=== PATIENT | male | born 1990 | race Caucasian/White ===

== ENCOUNTER 2024-07-09 17:05 | Emergency (ER) | payer OTHER, SELFPAY ==
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
[2024-07-09 18:05] VITALS: BP 138/77; PULSE 94; RESP 15; TEMP 36.6; O2SAT 98
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
[2024-07-09] MEDS: ACETAMINOPHEN 500 MG TABLET 1000 MG PO (19:15)
== END 2024-07-09 19:50 | disposition home or self-care (01) ==
PROVIDERS: Emergency Provider Physician Assistant; PCP Physician Assistant
DX: S09.90XA Unspecified injury of head, initial encounter (principal); S19.9XXA Unspecified injury of neck, initial encounter; E66.01 Morbid (severe) obesity due to excess calories; Z68.42 Body mass index [BMI] 45.0-49.9, adult; V49.40XA Driver injured in collision with unspecified motor vehicles in traffic accident, initial encounter
CPT/HCPCS: 70450; 72125; 99284; A9270

== ENCOUNTER 2025-04-02 18:07 | Emergency (ER) | payer OTHER, SELFPAY ==
--- NOTE | ~2025-04-02 | XR_ITS ---
HISTORY: [place] a pop in bicep lifting a heavy object COMPARISON: None TECHNIQUE: 3 views of the left elbow were performed FINDINGS: No acute fracture is identified. No elevation of the anterior or posterior fat pads are identified to suggest a supracondylar fracture . Overlying soft tissues are unremarkable. Bone mineralization is age-appropriate. IMPRESSION: No acute fracture or dislocation Reviewed, dictated and finalized at location A.
--- NOTE | ~2025-04-02 | XR_ITS ---
HISTORY: Pop in bicep while lifting heavy object COMPARISON: None TECHNIQUE: 3 views of the left shoulder were performed. FINDINGS: No acute fracture. The glenohumeral joint space is maintained. Widening of the acromioclavicular joint space, possibly secondary to prior acromioclavicular joint in jury. The visualized portion of the adjacent left lung is clear. The humeral head is well seated within the glenoid fossa. Within the visualized portion of the soft tissues of the upper arm is a bilobed density suggesting di stal biceps tendon rupture. IMPRESSION: No acute fracture or anterior dislocation. Reviewed, dictated and finalized at location A.
[2025-04-02 18:30] VITALS: BP 128/74; PULSE 90; RESP 20; TEMP 36.9; O2SAT 95
[2025-04-02 19:20] VITALS: BP 130/72; PULSE 88; RESP 18; TEMP 36.9; O2SAT 99
--- NOTE | 2025-04-02 19:33 | ED.GENADULT ---
HPI - General Adult General Chief complaint: Extremity Injury, Upper Stated complaint: left arm injury Time Seen by Provider: 04/02/25 19:22 History of Present Illness HPI narrative: 34-year-old male presenting with left arm pain. Patient was trying to lift a heavy machine object when he felt a pop in his upper arm. He is no longer able to flex his arm. He also has significant pain and movement. No weakness or numbness to the hand. [employer] strength is intact. No other injuries. Related Data Allergies Allergy/AdvReac Type Severity Reaction Status Date / Time Penicillins Allergy Mild Rash Verified 07/09/24 18:11 Exam Narrative: APPEARANCE: No apparent distress. Head: atraumatic. EYES: EOMI, NOSE: Atraumatic NECK: Trachea midline RESPIRATORY: No increased rate of breathing CARDIOVASCULAR: RRR, ABDOMINAL: Non-distended MUSCULOSKELETAl: [employer] Consultant strength intact, radial and ulnar pulses intact. Wrist movement intact. Patient has decreased strength flexion at the elbow. tricep function intact. Full function of the shoulder without pain. All compartments are soft. No overlying skin changes. Full function of the shoulder without pain. NEURO: Alert. Moving 4/4 extremities SKIN:: Warm, dry. Normal color PSYCHIATRIC: Normal affect Course Vital Signs Vital signs: Vital Signs Temperature 98.4 F 04/02/25 18:30 Pulse Rate 90 04/02/25 18:30 Respiratory Rate 20 04/02/25 18:30 Blood Pressure 128/74 04/02/25 18:30 Pulse Oximetry 95 04/02/25 18:30 Oxygen Delivery Room Air 04/02/25 18:30 Temperature 98.4 F 04/02/25 19:20 Pulse Rate 88 04/02/25 19:20 Respiratory Rate 18 04/02/25 19:20 Blood Pressure 130/72 04/02/25 19:20 Pulse Oximetry 99 04/02/25 19:20 Oxygen Delivery Room Air 04/02/25 18:30 Medical Decision Making [facility] Narrative Medical decision making narrative: -Course: 34-year-old male presenting with left arm injury. Suspected distal bicep tendon injury/rupture. Patient will be placed in sling given Orthopedic follow-up. Given return precautions. -DDX includes but is not limited to: Complete rupture, partial rupture, tendinitis, muscle strain Vital Signs Vital Signs: Vital Signs Temperature 98.4 F 04/02/25 18:30 Pulse Rate 90 04/02/25 18:30 Respiratory Rate 20 04/02/25 18:30 Blood Pressure 128/74 04/02/25 18:30 Pulse Oximetry 95 04/02/25 18:30 Oxygen Delivery Room Air 04/02/25 18:30 Temperature 98.4 F 04/02/25 19:20 Pulse Rate 88 04/02/25 19:20 Respiratory Rate 18 04/02/25 19:20 Blood Pressure 130/72 04/02/25 19:20 Pulse Oximetry 99 04/02/25 19:20 Oxygen Delivery Room Air 04/02/25 18:30 Discharge Plan Discharge Clinical Impression: Arm pain Patient Disposition: Home Condition: Stable Instructions: Antibiotic Form, Tendon Rupture (ED) Additional Instructions: You were seen in the emergency department for a biceps injury. I am concerned that you ruptured your biceps tendon. Please follow-up with the orthopedic surgeon listed below. If you develop severe pain or any new or worsening symptoms return to ED for re-evaluation. Patient Language: Hebrew Prescriptions: New ibuprofen 800 mg tablet 800 mg PO TID PRN (Reason: pain) 7 Days Qty: 21 0RF acetaminophen 500 mg tablet 1,000 mg PO TID PRN (Reason: eliane) 7 Days Qty: 42 0RF methocarbamol 750 mg tablet 1,500 mg PO TID Qty: 42 0RF No Action cyclobenzaprine 10 mg tablet 10 mg PO HS PRN (Reason: muscle spasm) Qty: 10 0RF Follow-up/Referrals: Emil,DORIS Ricardo [Primary Care Provider] - Dinesh Hernandez MD [Physician] - 1 Week (Bicep injury )
[2025-04-02] MEDS: ACETAMINOPHEN 500 MG TABLET 1000 MG PO (20:17)
[2025-04-02] MEDS: KETOROLAC 30 MG/ML VIAL (*BKC) IM (20:18)
== END 2025-04-02 22:38 | disposition home or self-care (01) ==
PROVIDERS: Emergency Provider Emergency Medicine; PCP Physician Assistant
DX: M79.602 Pain in left arm (principal); X50.0XXA Overexertion from strenuous movement or load, initial encounter
CPT/HCPCS: 73030; 73080; 96372; 99284; A4565; A9270; J1885

== ENCOUNTER 2025-04-07 13:49 | Outpatient (CLI) | payer OTHER, SELFPAY ==
--- NOTE | 2025-04-07 14:32 | ECG_ITS ---
Test Date: 2025-04-07 14:42:18 Measurements Intervals [place] Rate: 78 P: 41 MI: 148 QRS: 32 QRSD: 103 T: 5 QT: 366 QTc: 418 Interpretive Statements SINUS RHYTHM BORDERLINE ST-T WAVE ABNORMALITY- INFERIOR LEADS BASELINE ARTIFACT- AVR, AVL, AVF, V1-V6 BORDERLINE ECG No previous ECG available for comparison Electronically Signed On 04-07-2025 16:30:14 CDT by Raad Carmona D.O.
[2025-04-07 15:06] LABS: Hematocrit 47.1 % (42.0-52.0); Hemoglobin 15.8 g/dL (14.0-18.0); Mean Corpuscular HGB Conc 33.5 g/dl (32-36); Mean Corpuscular Hemoglobin 29.6 pg (26-34); Mean Corpuscular Volume 88.2 fl (80-100); Mean Platelet Volume 10.4 fl (7.4-10.4); Platelet Count Result 230 k/mm3 (150-375); Red Blood Count 5.34 M/mm3 (4.6-6.20); Red Cell Distribution Width 14.3 % (11.5-14.5); White Blood Count 8.4 K/mm3 (4.5-10.0)
[2025-04-07 15:20] LABS: Prothrombin Time 13.5 Seconds (11.1-14.7)
[2025-04-07 15:21] LABS: Partial Thromboplastin Time 25.8 Seconds (22.3-36.8)
[2025-04-07 15:24] LABS: Alanine Aminotransferase 26 U/L (6-50); Albumin Level 4.2 g/dL (3.5-5.1); Alkaline Phosphatase 44 U/L (38-126); Anion Gap 11 mmol/L (4-12); Aspartate Amino Transferase 31 U/L (17-59); Bilirubin,Total 0.3 mg/dL (0.2-1.3); Blood Urea Nitrogen 22 mg/dL (9-20); Calcium 9.2 mg/dL (8.4-10.2); Carbon Dioxide 22 mmol/L (22-30); Chloride 109 mmol/L (98-107); Estimated Glomerular Filt Rate > 60; Glucose 92 mg/dL (65-110); Potassium 3.7 mmol/L (3.4-5.0); Sodium 142 mmol/L (137-145); Total Protein 7.4 g/dL (6.3-8.2)
== END 2025-04-07 13:50 | disposition home or self-care (01) ==
PROVIDERS: PCP Physician Assistant
DX: S46.212A Strain of muscle, fascia and tendon of other parts of biceps, left arm, initial encounter (principal); X58.XXXA Exposure to other specified factors, initial encounter; R94.31 Abnormal electrocardiogram [ECG] [EKG]
CPT/HCPCS: 36415; 80053; 85027; 85610; 85730; 93005